=== PATIENT | female | born 1950 | race Caucasian/White ===

== ENCOUNTER 2021-10-03 12:39 | Inpatient (IN) | payer OTHER ==
[~2021-10-03] VITALS: Ht 177.8 cm; Wt 63.9 kg
[2021-10-03] MEDS ORDERED: dilTIAZem 25 MG/5 ML VIAL IV ONE ×3 (12:54→13:05)
[2021-10-03] MEDS ORDERED: dilTIAZem HCL 50 MG/10 ML VIAL IV ONE (13:09)
[2021-10-03] MEDS ORDERED: dilTIAZem 125mg/125ml BAG KIT 125 ML IV ONE ×2 (13:17→13:30)
[2021-10-03] MEDS ORDERED: SODIUM CHLORIDE 0.9% 1,000 ML IV ONE (13:30)
[2021-10-03 14:11] LABS: Basophils # (auto) 0.1 10 ^3/uL (0-0.2); Basophils % (auto) 0.4 % (0.0-2.0); Eosinophils # (auto) 0 10 ^3/uL (0-0.8); Eosinophils % (auto) 0.1 % (0.0-7.0); Hematocrit 39.9 % (36.0-46.0); Lymphocytes # (auto) 2.1 10 ^3/uL (0.4-5.4); Lymphocytes % (auto) 16.9 % (10.0-50.0); Mean Corpuscular Hemoglobin 29.1 pg (28.0-32.0); Mean Corpuscular Hgb Conc. 32.6 g/dL (32.0-36.0); Monocytes # (auto) 1.1 10 ^3/uL (0-1.3); Neutrophils # (auto) 9.3 10 ^3/uL (1.6-8.6); Neutrophils % (auto) 73.6 % (37.0-80.0); Nucleated Red Blood Cells % 0.1 %; Red Blood Cells 4.48 10^6/uL (4.0-5.20); Red Cell Distribution Width 13.2 % (11.8-14.3); White Blood Cell 12.7 10^3/uL (4.4-10.8)
[2021-10-03 14:16] LABS: Albumin 2.8 g/dL (3.4-5.0)
[2021-10-03 14:19] LABS: INR 1.32 (0.9-1.15); Partial Thromboplastin Time 31.7 sec (23.6-33.0)
[2021-10-03 14:21] LABS: Bilirubin, Total 0.9 mg/dL (0.2-1.0); Total Protein 6.4 g/dL (6.4-8.2)
[2021-10-03 14:54] LABS: BUN/Creatinine Ratio 25.8
[2021-10-03] MEDS ORDERED: AMIODARONE 450mg/250ml AE 250 ML IV SCH (15:00)
[2021-10-03] MEDS ORDERED: AMIODARONE HCL 150 MG in D5W 5% 100 ML IV ONE (15:00)
[2021-10-03] MEDS ORDERED: IOHEXOL 350 MG/ML 100ML IJ ONE (15:36)
[2021-10-03] MEDS ORDERED: MAGNESIUM SULFATE 100 ML IV ONE (16:30)
[2021-10-03] MEDS ORDERED: DexAMETHasone SOD PHOS 10MG/1ML VIAL INJ IV ONE (17:15)
[2021-10-03] MEDS ORDERED: DIGOXIN (250MCG/ML) 2 ML AMPULE IV ONE (19:15)
[2021-10-03] MEDS ORDERED: TEMAZEPAM 15 MG CAP PO PRN (22:30)
[2021-10-03] MEDS ORDERED: HYDROcodone-ACET 5/325MG TAB PO PRN (22:30)
[2021-10-03] MEDS ORDERED: ASPirin 325 MG TAB PO ONE (22:30)
[2021-10-03] MEDS ORDERED: ONDANSETRON HCL 4 MG/2 ML VIAL IV PRN (22:30)
[2021-10-03] MEDS ORDERED: MORPHINE SULFATE 4 MG/ML SYR/VIAL IV PRN (22:30)
[2021-10-03] MEDS: ENOXAPARIN SOD 60 MG/0.6 ML SYRINGE SC SCH (22:30)
[2021-10-03] MEDS ORDERED: ACETAMINOPHEN 325 MG TAB PO PRN (22:30)
[2021-10-03] MEDS ORDERED: MORPHINE SULFATE INJECTION 2 MG/ML SYRG IV PRN (22:30)
[2021-10-03] MEDS ORDERED: AMIODARONE HCL 200 MG TAB PO ONE (22:30)
[2021-10-03] MEDS ORDERED: POTASSIUM CHL 10MEQ/50ML 50 ML IV SCH (22:30)
[2021-10-03] MEDS ORDERED: NITROGLYCERIN 0.4 MG SL TAB SL PRN (22:30)
[2021-10-03] MEDS ORDERED: DOCUSATE SOD 100 MG CAP PO PRN (22:30)
[2021-10-04] MEDS: dilTIAZem 25 MG/5 ML VIAL IV PRN ×2 (00:35→04:29)
[2021-10-04 02:00] VITALS: BP 144/100
[2021-10-04 05:22] VITALS: BP 149/90
[2021-10-04 09:00] VITALS: BP 144/78
[2021-10-04] MEDS: ENOXAPARIN SOD 60 MG/0.6 ML SYRINGE SC SCH ×2 (10:01→21:09)
[2021-10-04] MEDS: AMIODARONE HCL 200 MG TAB PO SCH ×2 (10:01→21:09)
[2021-10-04 11:10] LABS: Basophils # (auto) 0 10 ^3/uL (0-0.2); Basophils % (auto) 0.1 % (0.0-2.0); Eosinophils # (auto) 0 10 ^3/uL (0-0.8); Hematocrit 39.3 % (36.0-46.0); Hemoglobin 13.1 g/dL (12.2-16.2); Lymphocytes # (auto) 1.3 10 ^3/uL (0.4-5.4); Lymphocytes % (auto) 12.9 % (10.0-50.0); Mean Corpuscular Hgb Conc. 33.3 g/dL (32.0-36.0); Mean Corpuscular Volume 87.1 fL (80.0-100.0); Monocytes # (auto) 0.4 10 ^3/uL (0-1.3); Monocytes % (auto) 3.8 % (0.0-12.0); Neutrophils # (auto) 8.6 10 ^3/uL (1.6-8.6); Neutrophils % (auto) 83.2 % (37.0-80.0); Nucleated Red Blood Cells % 0.4 %; Red Blood Cells 4.52 10^6/uL (4.0-5.20); White Blood Cell 10.4 10^3/uL (4.4-10.8)
[2021-10-04 11:11] LABS: Albumin 2.7 g/dL (3.4-5.0); Calcium 9.1 mg/dL (8.5-10.1)
[2021-10-04 11:16] LABS: BUN/Creatinine Ratio 29.4; Bilirubin, Total 0.7 mg/dL (0.2-1.0); Total Protein 6.3 g/dL (6.4-8.2)
[2021-10-04 13:00] VITALS: BP 161/97
[2021-10-04 17:00] VITALS: BP 145/102
[2021-10-04] MEDS ORDERED: dilTIAZem 125mg/125ml BAG KIT 125 ML IV SCH (17:15)
[2021-10-04] MEDS: dilTIAZem 25 MG/5 ML VIAL IV SCH ×2 (18:56→23:36)
[2021-10-04 22:00] VITALS: BP 152/103
[2021-10-05 05:00] VITALS: BP 155/81
[2021-10-05] MEDS: dilTIAZem 25 MG/5 ML VIAL IV SCH (05:14)
[2021-10-05 08:00] VITALS: BP 127/80
[2021-10-05] MEDS: ENOXAPARIN SOD 60 MG/0.6 ML SYRINGE SC SCH ×2 (10:11→21:42)
[2021-10-05] MEDS: AMIODARONE HCL 200 MG TAB PO SCH ×2 (10:12→21:42)
[2021-10-05] MEDS: dilTIAZem HCL 60 MG TAB GT SCH ×2 (11:57→19:49)
[2021-10-05 12:00] VITALS: BP 120/85
[2021-10-05 16:00] VITALS: BP 126/87
[2021-10-05 21:00] VITALS: BP 125/72
[2021-10-05] MEDS: dilTIAZem HCL 60 MG TAB PO SCH (23:59)
[2021-10-06 04:42] VITALS: BP 132/77
[2021-10-06 05:21] LABS: Basophils # (auto) 0.1 10 ^3/uL (0-0.2); Basophils % (auto) 0.7 % (0.0-2.0); Eosinophils # (auto) 0.1 10 ^3/uL (0-0.8); Eosinophils % (auto) 1.1 % (0.0-7.0); Hematocrit 40.4 % (36.0-46.0); Hemoglobin 13.3 g/dL (12.2-16.2); Lymphocytes # (auto) 2.2 10 ^3/uL (0.4-5.4); Lymphocytes % (auto) 18.9 % (10.0-50.0); Mean Corpuscular Volume 87.8 fL (80.0-100.0); Monocytes # (auto) 0.9 10 ^3/uL (0-1.3); Neutrophils # (auto) 8.4 10 ^3/uL (1.6-8.6); Neutrophils % (auto) 71.3 % (37.0-80.0); Nucleated Red Blood Cells % 0.1 %; Red Cell Distribution Width 13.1 % (11.8-14.3); White Blood Cell 11.8 10^3/uL (4.4-10.8)
[2021-10-06 05:33] LABS: INR 1.16 (0.9-1.15)
[2021-10-06 05:38] LABS: BUN/Creatinine Ratio 30.2; Calcium 8.6 mg/dL (8.5-10.1)
[2021-10-06] MEDS: dilTIAZem HCL 60 MG TAB PO SCH ×3 (05:58→17:41)
[2021-10-06] MEDS ORDERED: LIDOCAINE 2%HCL (LOCAL ANESTH.) INJ 20ML MDV ONE (07:42)
[2021-10-06] MEDS ORDERED: ANGIOMAX 250 MG VIAL IV ONE (07:47)
[2021-10-06] MEDS ORDERED: HEPARIN SODIUM (PORCINE) 5000 UNITS/ML 1ML VIAL ONE ×2 (07:47→08:56)
[2021-10-06] MEDS ORDERED: MIDAZOLAM HCL 2MG/2ML 2ml VIAL (1mg/ml) ONE ×2 (07:48→08:57)
[2021-10-06] MEDS ORDERED: SODIUM CHL 0.9% 0 ML ONE (07:48)
[2021-10-06] MEDS ORDERED: VERAPAMIL 2.5MG/ML INJ 2ML VIAL IV ONE (07:48)
[2021-10-06] MEDS ORDERED: fentaNYL CITRATE 100 MCG/2 ML VL ONE (07:48)
[2021-10-06] MEDS ORDERED: SODIUM CHL 0.9% 50 ML ONE (08:10)
[2021-10-06] MEDS ORDERED: IODIXANOL 320MG/ML 100ML BTL IV ONE (08:36)
[2021-10-06] MEDS: ENOXAPARIN SOD 60 MG/0.6 ML SYRINGE SC SCH ×2 (09:31→21:09)
[2021-10-06] MEDS: AMIODARONE HCL 200 MG TAB PO SCH ×2 (09:31→21:09)
[2021-10-06 13:00] VITALS: BP 128/68
[2021-10-06 17:00] VITALS: BP 135/72
[2021-10-06 22:00] VITALS: BP 138/77
[2021-10-07] MEDS: dilTIAZem HCL 60 MG TAB PO SCH ×4 (00:27→18:05)
[2021-10-07 05:00] VITALS: BP 107/48
[2021-10-07 09:00] VITALS: BP 144/80
[2021-10-07] MEDS: ENOXAPARIN SOD 60 MG/0.6 ML SYRINGE SC SCH (09:22)
[2021-10-07] MEDS: AMIODARONE HCL 200 MG TAB PO SCH (09:22)
[2021-10-07 12:56] VITALS: BP 136/88
[2021-10-07] MEDS ORDERED: METO25TA5 PO (13:14)
[2021-10-07] MEDS ORDERED: APIX5TAB PO (13:14)
[2021-10-07] MEDS ORDERED: ATOR20TA PO (13:14)
[2021-10-07] MEDS ORDERED: LISI20TA28 PO (13:14)
[2021-10-07] MEDS ORDERED: AMIO200T33 PO (13:14)
[2021-10-07 16:19] VITALS: BP 149/86
== END 2021-10-07 19:20 | disposition home or self-care (01) | DRG 280 ==
LOC: ER 12:39 → EDBD 12:39 → TELE 22:20 → TELE-WESTW 10-04 02:18
PROVIDERS: ADMIT Internal Medicine; ATTEND Internal Medicine
PROC: B211YZZ Fluoroscopy of Multiple Coronary Arteries using Other Contrast (ICD-10-PCS; principal; 2021-10-06)
PROC: B215YZZ Fluoroscopy of Left Heart using Other Contrast (ICD-10-PCS; 2021-10-06)
PROC: 4A023N7 Measurement of Cardiac Sampling and Pressure, Left Heart, Percutaneous Approach (ICD-10-PCS; 2021-10-06)
PROC: 5A2204Z Restoration of Cardiac Rhythm, Single (ICD-10-PCS; 2021-10-06)
PROC: B24BZZ4 Ultrasonography of Heart with Aorta, Transesophageal (ICD-10-PCS; 2021-10-06)
DX: I21.4 Non-ST elevation (NSTEMI) myocardial infarction (principal); I50.21 Acute systolic (congestive) heart failure; E43 Unspecified severe protein-calorie malnutrition; I47.1 Supraventricular tachycardia; I42.9 Cardiomyopathy, unspecified; I48.91 Unspecified atrial fibrillation; E88.09 Other disorders of plasma-protein metabolism, not elsewhere classified; I35.2 Nonrheumatic aortic (valve) stenosis with insufficiency; Z20.822 Contact with and (suspected) exposure to COVID-19; I11.0 Hypertensive heart disease with heart failure; I25.10 Atherosclerotic heart disease of native coronary artery without angina pectoris; J43.9 Emphysema, unspecified; K21.9 Gastro-esophageal reflux disease without esophagitis; Z82.49 Family history of ischemic heart disease and other diseases of the circulatory system; Z80.0 Family history of malignant neoplasm of digestive organs; Z68.20 Body mass index [BMI] 20.0-20.9, adult; Z87.891 Personal history of nicotine dependence
CPT/HCPCS: 36415; 71045; 71275; 80048; 80053; 83735; 83880; 84436; 84443; 84484; 85025; 85379; 85610; 85730; 86850; 86900; 86901; 87426; 92960; 93005; 93306; 93312; 93458; 93970; 96365; 96376; 99291; G0378; J1100; J2250; J7060; Q9967

== ENCOUNTER 2022-02-06 00:35 | Observation (INO) | payer OTHER, MEDICAID ==
[~2022-02-06] VITALS: Ht 180.3 cm; Wt 62.8 kg
[~2022-02-06 00:35] MED LIST: AMIO200T33 PO; APIX5TAB PO; ATOR20TA PO; LISI20TA28 PO; METO25TA5 PO
[2022-02-06 01:33] LABS: Basophils # (auto) 0 10 ^3/uL (0-0.2); Basophils % (auto) 0.6 % (0.0-2.0); Eosinophils # (auto) 0 10 ^3/uL (0-0.8); Eosinophils % (auto) 0.1 % (0.0-7.0); Hematocrit 39.1 % (36.0-46.0); Hemoglobin 12.7 g/dL (12.2-16.2); Lymphocytes % (auto) 20.8 % (10.0-50.0); Mean Corpuscular Hemoglobin 27.5 pg (28.0-32.0); Mean Corpuscular Hgb Conc. 32.6 g/dL (32.0-36.0); Mean Corpuscular Volume 84.3 fL (80.0-100.0); Monocytes # (auto) 0.7 10 ^3/uL (0-1.3); Monocytes % (auto) 15.4 % (0.0-12.0); Neutrophils % (auto) 63.1 % (37.0-80.0); Nucleated Red Blood Cells % 0.2 %; Red Blood Cells 4.63 10^6/uL (4.0-5.20); Red Cell Distribution Width 16.8 % (11.8-14.3); White Blood Cell 4.7 10^3/uL (4.4-10.8)
[2022-02-06 01:47] LABS: Calcium 8.8 mg/dL (8.5-10.1)
[2022-02-06 01:53] LABS: BUN/Creatinine Ratio 15.2; Bilirubin, Total 0.2 mg/dL (0.2-1.0); Total Protein 6.8 g/dL (6.4-8.2)
[2022-02-06] MEDS ORDERED: ACETAMINOPHEN 325 MG TAB PO PRN (10:30)
[2022-02-06] MEDS ORDERED: HYDROcodone-ACET 5/325MG TAB PO PRN (10:30)
[2022-02-06] MEDS ORDERED: DOCUSATE SOD 100 MG CAP PO PRN (10:30)
[2022-02-06] MEDS ORDERED: NITROGLYCERIN 0.4 MG SL TAB SL PRN (10:30)
[2022-02-06] MEDS ORDERED: ONDANSETRON HCL 4 MG/2 ML VIAL IV PRN (10:30)
[2022-02-06] MEDS ORDERED: MORPHINE SULFATE INJ 2 MG/ml SYRG IV PRN ×2 (10:30)
[2022-02-06] MEDS: MULTIPLE VITAMIN TAB PO SCH (10:58)
[2022-02-06] MEDS: ZINC SULFATE 220mg CAP or TAB PO SCH (10:58)
[2022-02-06] MEDS: ASCORBIC ACID 500 MG TAB PO SCH ×2 (10:59→21:15)
[2022-02-06 12:50] VITALS: BP 100/46
[2022-02-06 13:00] VITALS: BP 115/80
[2022-02-06 13:51] VITALS: BP 100/46
[2022-02-06 17:00] VITALS: BP 135/81
[2022-02-06 19:43] VITALS: BP 135/81
[2022-02-06] MEDS: methylPREDNISolone SOD SUCC 125 MG/2 ML VL IV SCH (22:17)
[2022-02-06] MEDS: ALBUTEROL SULF HFA 90MCG INH 200DOSE IN SCH (22:23)
[2022-02-06 22:24] VITALS: BP 131/80
[2022-02-07 05:20] VITALS: BP 123/78
[2022-02-07 06:39] LABS: Basophils # (auto) 0 10 ^3/uL (0-0.2); Basophils % (auto) 0.2 % (0.0-2.0); Eosinophils # (auto) 0 10 ^3/uL (0-0.8); Hematocrit 39.1 % (36.0-46.0); Hemoglobin 12.9 g/dL (12.2-16.2); Lymphocytes # (auto) 0.9 10 ^3/uL (0.4-5.4); Lymphocytes % (auto) 8.6 % (10.0-50.0); Mean Corpuscular Hemoglobin 27.6 pg (28.0-32.0); Mean Corpuscular Hgb Conc. 33.1 g/dL (32.0-36.0); Mean Corpuscular Volume 83.5 fL (80.0-100.0); Monocytes # (auto) 0.5 10 ^3/uL (0-1.3); Monocytes % (auto) 4.6 % (0.0-12.0); Neutrophils # (auto) 8.6 10 ^3/uL (1.6-8.6); Neutrophils % (auto) 86.6 % (37.0-80.0); Nucleated Red Blood Cells % 0.1 %; Red Blood Cells 4.69 10^6/uL (4.0-5.20); Red Cell Distribution Width 16.8 % (11.8-14.3); White Blood Cell 9.9 10^3/uL (4.4-10.8)
[2022-02-07 06:52] LABS: Albumin 2.6 g/dL (3.4-5.0); Calcium 9.2 mg/dL (8.5-10.1); Potassium 4.3 mmol/L (3.5-5.1)
[2022-02-07 06:58] LABS: BUN/Creatinine Ratio 21.8; Bilirubin, Total 0.2 mg/dL (0.2-1.0); Total Protein 6.2 g/dL (6.4-8.2)
[2022-02-07] MEDS: ALBUTEROL SULF HFA 90MCG INH 200DOSE IN SCH ×3 (07:12→19:25)
[2022-02-07 09:00] VITALS: BP 126/84
[2022-02-07] MEDS ORDERED: ENOXAPARIN SOD 40 MG/0.4 ML SYRINGE SC SCH (10:00)
[2022-02-07] MEDS: methylPREDNISolone SOD SUCC 125 MG/2 ML VL IV SCH ×2 (10:49→22:34)
[2022-02-07] MEDS: MULTIPLE VITAMIN TAB PO SCH (10:49)
[2022-02-07] MEDS: ZINC SULFATE 220mg CAP or TAB PO SCH (10:49)
[2022-02-07] MEDS: ASCORBIC ACID 500 MG TAB PO SCH ×2 (10:49→22:34)
[2022-02-07 12:30] VITALS: BP 137/78
[2022-02-07 17:00] VITALS: BP 125/73
[2022-02-07 22:00] VITALS: BP 135/87
[2022-02-08 05:00] VITALS: BP 139/93
[2022-02-08 09:00] VITALS: BP 122/93
[2022-02-08] MEDS: methylPREDNISolone SOD SUCC 125 MG/2 ML VL IV SCH (09:32)
[2022-02-08] MEDS: ZINC SULFATE 220mg CAP or TAB PO SCH (09:33)
[2022-02-08] MEDS: ASCORBIC ACID 500 MG TAB PO SCH (09:33)
[2022-02-08] MEDS: MULTIPLE VITAMIN TAB PO SCH (09:33)
[2022-02-08] MEDS ORDERED: APIXABAN 5 MG TAB PO SCH (10:00)
[2022-02-08 12:54] VITALS: BP 142/90
[2022-02-08] MEDS ORDERED: AMIODARONE HCL 200 MG TAB PO SCH (22:00)
== END 2022-02-08 16:45 | disposition home or self-care (01) ==
LOC: EDBD 00:35 → ER 00:35 → TELE 10:21 → INTOOBSV 10:21 → TELE-EAST 12:40
PROVIDERS: ADMIT Internal Medicine; ATTEND Internal Medicine
DX: U07.1 COVID-19 (principal); R26.9 Unspecified abnormalities of gait and mobility; R62.7 Adult failure to thrive; R07.89 Other chest pain; I12.9 Hypertensive chronic kidney disease with stage 1 through stage 4 chronic kidney disease, or unspecified chronic kidney disease; N18.9 Chronic kidney disease, unspecified; I25.10 Atherosclerotic heart disease of native coronary artery without angina pectoris; I38 Endocarditis, valve unspecified; I35.0 Nonrheumatic aortic (valve) stenosis; J43.9 Emphysema, unspecified; I48.91 Unspecified atrial fibrillation; I27.20 Pulmonary hypertension, unspecified; I49.9 Cardiac arrhythmia, unspecified; I35.2 Nonrheumatic aortic (valve) stenosis with insufficiency; E78.5 Hyperlipidemia, unspecified; Z68.1 Body mass index [BMI] 19.9 or less, adult; Z79.899 Other long term (current) drug therapy; Z98.890 Other specified postprocedural states
CPT/HCPCS: 36415; 71045; 80053; 83880; 84484; 85025; 87426; 93005; 93306; 94640; 96372; 96374; 96376; 99285; G0378; J1650; J2930

== ENCOUNTER 2022-02-09 20:18 | Inpatient (IN) | payer OTHER, MEDICAID ==
[~2022-02-09] VITALS: Ht 170.2 cm; Wt 73.4 kg
[2022-02-09 21:27] LABS: Basophils # (auto) 0.1 10 ^3/uL (0-0.2); Eosinophils # (auto) 0 10 ^3/uL (0-0.8); Mean Corpuscular Hemoglobin 26.9 pg (28.0-32.0); Red Blood Cells 4.56 10^6/uL (4.0-5.20); White Blood Cell 11.4 10^3/uL (4.4-10.8)
[2022-02-09 21:28] LABS: Basophils % (auto) 1.1 % (0.0-2.0); Hematocrit 37.9 % (36.0-46.0); Hemoglobin 12.3 g/dL (12.2-16.2); Lymphocytes # (auto) 0.5 10 ^3/uL (0.4-5.4); Lymphocytes % (auto) 4.7 % (10.0-50.0); Mean Corpuscular Hgb Conc. 32.3 g/dL (32.0-36.0); Mean Corpuscular Volume 83.2 fL (80.0-100.0); Monocytes # (auto) 0.9 10 ^3/uL (0-1.3); Monocytes % (auto) 8.2 % (0.0-12.0); Neutrophils # (auto) 9.8 10 ^3/uL (1.6-8.6); Red Cell Distribution Width 16.9 % (11.8-14.3)
[2022-02-09 21:44] LABS: Albumin 2.7 g/dL (3.4-5.0); Calcium 8.8 mg/dL (8.5-10.1); Potassium 4.2 mmol/L (3.5-5.1)
[2022-02-09 21:47] LABS: BUN/Creatinine Ratio 23.4; Bilirubin, Total 0.3 mg/dL (0.2-1.0); Total Protein 6.8 g/dL (6.4-8.2)
[2022-02-09] MEDS ORDERED: SODIUM CHLORIDE 0.9% 1,000 ML IV ONE (22:00)
[2022-02-09] MEDS ORDERED: NITROGLYCERIN 0.4 MG SL TAB SL PRN (23:15)
[2022-02-09] MEDS ORDERED: ONDANSETRON HCL 4 MG/2 ML VIAL IV PRN (23:15)
[2022-02-09] MEDS ORDERED: ACETAMINOPHEN 325 MG TAB PO PRN (23:15)
[2022-02-09] MEDS ORDERED: MORPHINE SULFATE INJ 2 MG/ml SYRG IV PRN ×2 (23:15)
[2022-02-09] MEDS ORDERED: HYDROcodone-ACET 5/325MG TAB PO PRN (23:15)
[2022-02-09 23:25] LABS: Urine Bacteria NONE SEEN /hpf (None Seen); Urine Blood Negative /uL (Negative); Urine Specific Gravity 1.015 (1.001-1.035); Urine WBC 1 /hpf (0 - 5)
[2022-02-10 01:08] VITALS: BP 157/83
[2022-02-10 05:00] VITALS: BP 160/90
[2022-02-10 06:52] LABS: Basophils # (auto) 0 10 ^3/uL (0-0.2); Basophils % (auto) 0.2 % (0.0-2.0); Eosinophils # (auto) 0 10 ^3/uL (0-0.8); Hematocrit 34.8 % (36.0-46.0); Hemoglobin 11.7 g/dL (12.2-16.2); Lymphocytes # (auto) 1.3 10 ^3/uL (0.4-5.4); Lymphocytes % (auto) 13.1 % (10.0-50.0); Mean Corpuscular Hemoglobin 27.4 pg (28.0-32.0); Mean Corpuscular Hgb Conc. 33.7 g/dL (32.0-36.0); Mean Corpuscular Volume 81.4 fL (80.0-100.0); Monocytes # (auto) 0.8 10 ^3/uL (0-1.3); Monocytes % (auto) 8.1 % (0.0-12.0); Neutrophils # (auto) 7.6 10 ^3/uL (1.6-8.6); Neutrophils % (auto) 78.6 % (37.0-80.0); Red Blood Cells 4.27 10^6/uL (4.0-5.20); Red Cell Distribution Width 16.9 % (11.8-14.3); White Blood Cell 9.7 10^3/uL (4.4-10.8)
[2022-02-10 07:17] LABS: Albumin 2.4 g/dL (3.4-5.0); Calcium 8.1 mg/dL (8.5-10.1); Potassium 3.7 mmol/L (3.5-5.1)
[2022-02-10 07:20] LABS: BUN/Creatinine Ratio 24.1; Bilirubin, Total 0.3 mg/dL (0.2-1.0); Total Protein 6.1 g/dL (6.4-8.2)
[2022-02-10 08:00] VITALS: BP 135/83
[2022-02-10] MEDS: MULTIPLE VITAMIN TAB PO SCH (09:26)
[2022-02-10] MEDS: ASCORBIC ACID 500 MG TAB PO SCH (09:26)
[2022-02-10] MEDS: ZINC SULFATE 220mg CAP or TAB PO SCH (09:26)
[2022-02-10] MEDS ORDERED: LORazepam 2MG/ML-1ML VIAL IV PRN (09:45)
[2022-02-10] MEDS ORDERED: ENOXAPARIN SOD 40 MG/0.4 ML SYRINGE SC SCH (10:00)
[2022-02-10 12:00] VITALS: BP 149/87
[2022-02-10 16:00] VITALS: BP 135/65
[2022-02-10] MEDS: cefTRIAXone 1GM/50ML D5W 50 ML IV SCH (16:43)
[2022-02-10] MEDS ORDERED: ATORVASTATIN 20 MG TAB PO SCH (17:30)
[2022-02-10 22:00] VITALS: BP 107/65
[2022-02-11] MEDS: APIXABAN 5 MG TAB PO SCH ×2 (01:05→08:46)
[2022-02-11] MEDS: ASCORBIC ACID 500 MG TAB PO SCH ×2 (01:05→08:46)
[2022-02-11] MEDS: METOPROLOL TARTRATE 25 MG TAB PO SCH ×2 (01:07→08:47)
[2022-02-11 05:00] VITALS: BP 135/79
[2022-02-11 06:16] LABS: Albumin 2.2 g/dL (3.4-5.0); Potassium 3.7 mmol/L (3.5-5.1)
[2022-02-11 06:18] LABS: BUN/Creatinine Ratio 14.8; Calcium 8.4 mg/dL (8.5-10.1); Magnesium 1.8 mg/dL (1.6-2.6); Phosphorus 1.8 mg/dL (2.5-4.90); Total Protein 5.8 g/dL (6.4-8.2)
[2022-02-11 06:20] LABS: Bilirubin, Total 0.3 mg/dL (0.2-1.0)
[2022-02-11 06:38] LABS: Basophils # (auto) 0 10 ^3/uL (0-0.2); Basophils % (auto) 0.2 % (0.0-2.0); Eosinophils # (auto) 0 10 ^3/uL (0-0.8); Hematocrit 38.3 % (36.0-46.0); Hemoglobin 12.4 g/dL (12.2-16.2); Lymphocytes # (auto) 1.1 10 ^3/uL (0.4-5.4); Lymphocytes % (auto) 9.5 % (10.0-50.0); Mean Corpuscular Hemoglobin 26.6 pg (28.0-32.0); Mean Corpuscular Hgb Conc. 32.3 g/dL (32.0-36.0); Mean Corpuscular Volume 82.2 fL (80.0-100.0); Monocytes # (auto) 0.6 10 ^3/uL (0-1.3); Monocytes % (auto) 5.5 % (0.0-12.0); Neutrophils # (auto) 9.7 10 ^3/uL (1.6-8.6); Neutrophils % (auto) 84.8 % (37.0-80.0); Nucleated Red Blood Cells % 0.1 %; Red Blood Cells 4.65 10^6/uL (4.0-5.20); Red Cell Distribution Width 16.9 % (11.8-14.3); White Blood Cell 11.5 10^3/uL (4.4-10.8)
[2022-02-11 08:00] VITALS: BP 131/83
[2022-02-11] MEDS: MULTIPLE VITAMIN TAB PO SCH (08:46)
[2022-02-11] MEDS: ZINC SULFATE 220mg CAP or TAB PO SCH (08:46)
[2022-02-11] MEDS: cefTRIAXone 1GM/50ML D5W 50 ML IV SCH (08:49)
[2022-02-11] MEDS ORDERED: LISINOPRIL 20 MG TAB PO SCH (10:00)
[2022-02-11] MEDS ORDERED: AMIODARONE HCL 200 MG TAB PO SCH (10:00)
[2022-02-11 12:00] VITALS: BP 118/71
[2022-02-11 16:00] VITALS: BP 128/75
[2022-02-11 17:10] VITALS: BP 131/83
== END 2022-02-11 18:30 | disposition home health service (06) | DRG 177 ==
LOC: EDBD 20:18 → ER 20:20 → TELE 23:01 → TELE-EAST 23:47
PROVIDERS: ADMIT Internal Medicine; ATTEND Internal Medicine
DX: U07.1 COVID-19 (principal); I50.23 Acute on chronic systolic (congestive) heart failure; N17.9 Acute kidney failure, unspecified; N39.0 Urinary tract infection, site not specified; E46 Unspecified protein-calorie malnutrition; R65.10 Systemic inflammatory response syndrome (SIRS) of non-infectious origin without acute organ dysfunction; I13.0 Hypertensive heart and chronic kidney disease with heart failure and stage 1 through stage 4 chronic kidney disease, or unspecified chronic kidney disease; Z20.822 Contact with and (suspected) exposure to COVID-19; E11.22 Type 2 diabetes mellitus with diabetic chronic kidney disease; J43.9 Emphysema, unspecified; E78.5 Hyperlipidemia, unspecified; E86.0 Dehydration; I25.10 Atherosclerotic heart disease of native coronary artery without angina pectoris; I27.20 Pulmonary hypertension, unspecified; I35.2 Nonrheumatic aortic (valve) stenosis with insufficiency; I48.0 Paroxysmal atrial fibrillation; N18.9 Chronic kidney disease, unspecified; R56.9 Unspecified convulsions; Z68.25 Body mass index [BMI] 25.0-25.9, adult
CPT/HCPCS: 36415; 71045; 80053; 81001; 83605; 83735; 84100; 84484; 85025; 87040; 93005; 95819; 96360; G0378; J0696